=== PATIENT | female | born 1995 | race Caucasian/White ===

== ENCOUNTER 2021-01-25 10:48 | Outpatient (REF) | payer OTHER, SELFPAY ==
[2021-01-28 05:00] LABS: Immunoglobulin A 196 mg/dL (47-310)
[2021-01-28 13:51] LABS: Gliadin Deamidated IgA Ab 8.7 U/mL; Gliadin Deamidated IgG Ab <1.0 U/mL; Transglutaminase Ab IgG <1.0 U/mL; Transglutaminase IgA <1.0 U/mL
[2021-01-29 20:11] LABS: Endomysial IgA Antibody Negative (Negative)
== END 2021-01-25 10:49 | disposition home or self-care (01) ==
LOC: HO.MANLDS 10:48
PROVIDERS: PCP Physician Assistant; Visit Provider Physician Assistant
DX: K90.41 Non-celiac gluten sensitivity (principal)
CPT/HCPCS: 36415; 82784; 83516; 86255; 86256